=== PATIENT | female | born 1940 | race Caucasian/White ===

== ENCOUNTER → 2020-05-07 | Outpatient (CLI) | payer MEDICARE | LOC: CARD 14:15 | PROVIDERS: ATTEND Emergency Medicine | DX: I65.23 Occlusion and stenosis of bilateral carotid arteries (principal) | CPT/HCPCS: 70450; 93880 ==

== ENCOUNTER → 2021-06-23 | Outpatient (CLI) | payer MEDICARE | LOC: DX 12:07 | PROVIDERS: ATTEND Emergency Medicine | DX: M17.11 Unilateral primary osteoarthritis, right knee (principal); M85.88 Other specified disorders of bone density and structure, other site; R07.9 Chest pain, unspecified; I70.90 Unspecified atherosclerosis | CPT/HCPCS: 71101; 77080; 93925 ==